=== PATIENT | male | born 2000 | race Two or more races ===

== ENCOUNTER 2020-05-12 23:21 | Emergency (ER) | payer SELFPAY ==
[~2020-05-12] VITALS: Ht 182.9 cm; Wt 68.0 kg
[2020-05-13] MEDS ORDERED: BACITRACIN ZINC OINT UDPKT TOP ONE (03:15)
[2020-05-13] MEDS ORDERED: LIDOCAINE 1%/EPI 1:100,000 10 ML VIAL IJ ONE (03:15)
[2020-05-13 06:11] VITALS: BP 121/76
== END 2020-05-13 06:14 | disposition home or self-care (01) ==
LOC: ER 23:21
DX: S01.112A Laceration without foreign body of left eyelid and periocular area, initial encounter (principal); I49.9 Cardiac arrhythmia, unspecified; W01.0XXA Fall on same level from slipping, tripping and stumbling without subsequent striking against object, initial encounter; Y93.89 Activity, other specified; Y92.521 Bus station as the place of occurrence of the external cause
CPT/HCPCS: 93005; 99283; J3490

== ENCOUNTER 2020-05-18 16:25 | Emergency (ER) | payer SELFPAY ==
[~2020-05-18] VITALS: Ht 177.8 cm; Wt 73.0 kg
[2020-05-18 16:28] VITALS: BP 112/48
== END 2020-05-18 17:17 | disposition home or self-care (01) ==
LOC: ER 16:25
DX: S01.112D Laceration without foreign body of left eyelid and periocular area, subsequent encounter (principal); Z48.02 Encounter for removal of sutures; X58.XXXD Exposure to other specified factors, subsequent encounter
CPT/HCPCS: 99281